=== PATIENT | male | born 1980 | race Caucasian/White ===

== ENCOUNTER 2017-03-31 06:10 | Emergency (ER) | payer BC ==
--- NOTE | 2017-03-31 16:46 | ER ---
ADMIT: 03/31/2017 RM/LOC: ER [facility] MR#: [id number] [address] [id number] [address] [place] [address] Emergency Room Report SEX: M AGE: 36 : 1980 DATE: 03/31/2017 ADDENDUM: A 36-year-old white male, initially seen by Dr. Burgos, I refer you to his dictation, coming in for what sounds like a syncopal episode. Question of maybe a little bit of dehydration, however, exam does not entirely go with that. CT of his head is negative. CBC, chemistry are negative. At this time, I talked to him about seizure-like activity, getting this followed up. He did not have any injuries here. Evidently, he did lose control of his bladder. He will be followed up with primary, I have advised him not to drive until he saw him. CONDITION DISCHARGE: Otherwise good. Uzair Link MD/ jaz JOB #: [id number] CC: Idris Burgos MD, Attending Physician
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
== END 2017-03-31 09:17 | disposition home or self-care (01) ==
LOC: ER 06:10
DX: R56.9 Unspecified convulsions (principal); Z90.49 Acquired absence of other specified parts of digestive tract; W18.30XA Fall on same level, unspecified, initial encounter